=== PATIENT | male | born 1960 | race Caucasian/White ===

== ENCOUNTER → 2016-04-20 | Outpatient (CLI) | payer OTHER | LOC: US 08:38 | DX: D45 Polycythemia vera (principal); K76.0 Fatty (change of) liver, not elsewhere classified | CPT/HCPCS: 76705 ==

== ENCOUNTER → 2016-05-13 | Outpatient (CLI) | payer OTHER | LOC: MRI 10:00 | DX: E83.19 Other disorders of iron metabolism (principal); N28.1 Cyst of kidney, acquired | CPT/HCPCS: 74183; A9577; J7050 ==